=== PATIENT | female | born 2000 | race Caucasian/White ===

== ENCOUNTER 2022-11-20 07:30 | Outpatient (CLI) | payer BC, SELFPAY | END 2022-11-20 07:31 | disposition home or self-care (01) | LOC: NFLDREF 10:21 | PROVIDERS: Visit Provider Family Medicine | DX: Z13.1 Encounter for screening for diabetes mellitus (principal); Z13.6 Encounter for screening for cardiovascular disorders | CPT/HCPCS: 80061; 82947 ==